=== PATIENT | male | born 1950 | race Caucasian/White ===

== ENCOUNTER 2023-12-29 10:05 | Outpatient (OUT) | payer MEDICARE, SELFPAY ==
--- NOTE | 2023-12-29 | XR_ITS ---
The [address] [address] Patient Name: MITCHELL COPE MRN: [id number] date: 1950 Sex: M Assigned Patient Location: Current Patient Location: Accession/Order Number: [id number] Exam Date: 12/29/2023 10:20 Report Date: 12/29/2023 13:04 At the request of: SHANIQUE EVERETT Procedure: XR lumbar spine min 4V EXAMINATION: XR lumbar spine min 4V HISTORY: LUMBAR PAIN COMPARISON: No relevant comparison available. FINDINGS: BONES: Neutral projection demonstrates normal alignment with no acute fracture or spondylolisthesis. Posterior decompression and transpedicular fusion of the thoracolumbar spine extending into the sacroiliac joints. There is likely fracture of one of the spinal fixation rods visualized on lateral projection 2. Wedge compression fracture and kyphoplasty of T12. Anterior fusion L5-S1. Moderate to severe degenerative spondylosis DISC SPACES: Interbody spacer L4-L5. Anterior fusion L5-S1 PARASPINOUS: Negative. No paraspinous abnormality is seen. OTHER: No transient spondylolisthesis with flexion or extension. Vascular calcifications XR/XR lumbar spine min 4V IMPRESSION: Fracture of inferior spinal fixation shayna No dynamic instability Electronically authenticated by: DAMEON FRANCOIS Date: 12/29/2023 13:04
== END 2023-12-29 10:06 | disposition home or self-care (01) ==
PROVIDERS: PCP Orthopaedic Surgery Orthopaedic Surgery of the Spine; Visit Provider Orthopaedic Surgery Orthopaedic Surgery of the Spine
DX: M54.50 Low back pain, unspecified (principal); T84.216A Breakdown (mechanical) of internal fixation device of vertebrae, initial encounter
CPT/HCPCS: 72110

== ENCOUNTER 2024-01-12 12:08 | Day surgery (SDC) | payer MEDICARE, SELFPAY ==
[2024-01-12] VITALS (7 sets, daily range): BP systolic 103–158; BP diastolic 52–103; PULSE 70–81; RESP 20; TEMP 36.7; O2SAT 96–99
--- NOTE | 2024-01-12 12:20 | FL_ITS ---
The [address] [address] Patient Name: MITCHELL COPE MRN: [id number] date: 1950 Sex: M Assigned Patient Location: MD Current Patient Location: MD Accession/Order Number: [id number] Exam Date: 01/12/2024 13:00 Report Date: 01/12/2024 13:55 At the request of: SHANIQUE EVERETT Procedure: FL Myelogram inj procedure EXAMINATION: FL Myelogram inj procedure, FL Myelogram needle placement HISTORY: lumbar back pain M54.50 COMPARISON: XR lumbar spine 12/29/2023 FLUOROSCOPY TIME: Fluoro time measures 1.1 minutes and 2 images were obtained. TECHNIQUE: After obtaining the patient's informed consent, a lumbar myelogram was performed in the usual sterile manner via lumbar puncture. Standard level fluoroscopic mode of operation utilized. 16 mL radiopaque contrast instilled into the central canal. FINDINGS: Contrast pooled within the lower lumbar central canal. No appreciable stricture. Bilateral posterior spinal fusion rods and pedicle screws. FL/FL Myelogram inj procedure IMPRESSION: 1. Technically successful lumbar puncture with injection of radiopaque contrast. No postprocedural, calcifications. 2. Please see subsequent CT lumbar spine report. Electronically authenticated by: ZENIA HEBERT Date: 01/12/2024 13:55
--- NOTE | 2024-01-12 12:21 | FL_ITS ---
The [address] [address] Patient Name: MITCHELL COPE MRN: [id number] date: 1950 Sex: M Assigned Patient Location: [place] Current Patient Location: [place] Accession/Order Number: [id number] Exam Date: 01/12/2024 13:00 Report Date: 01/12/2024 13:55 At the request of: SHANIQUE EVERETT Procedure: FL Myelogram needle placement EXAMINATION: FL Myelogram inj procedure, FL Myelogram needle placement HISTORY: lumbar back pain M54.50 COMPARISON: XR lumbar spine 12/29/2023 FLUOROSCOPY TIME: Fluoro time measures 1.1 minutes and 2 images were obtained. TECHNIQUE: After obtaining the patient's informed consent, a lumbar myelogram was performed in the usual sterile manner via lumbar puncture. Standard level fluoroscopic mode of operation utilized. 16 mL radiopaque contrast instilled into the central canal. FINDINGS: Contrast pooled within the lower lumbar central canal. No appreciable stricture. Bilateral posterior spinal fusion rods and pedicle screws. FL/FL Myelogram needle placement IMPRESSION: 1. Technically successful lumbar puncture with injection of radiopaque contrast. No postprocedural, calcifications. 2. Please see subsequent CT lumbar spine report. Electronically authenticated by: ZENIA HEBERT Date: 01/12/2024 13:55
--- NOTE | 2024-01-12 12:21 | CT_ITS ---
[address] [address] Patient Name: MITCHELL COPE MRN: [id number] date: 1950 Sex: M Assigned Patient Location: [place] Current Patient Location: Accession/Order Number: [id number] Exam Date: 01/12/2024 13:49 Report Date: 01/13/2024 08:44 At the request of: SHANIQUE EVERETT Procedure: CT lumbar spine w con EXAMINATION: CT lumbar spine w con HISTORY: lumbar pain COMPARISON: No relevant comparison available. TECHNIQUE: Axial, Coronal, and Sagittal images were created without IV contrast. Dose reduction techniques were achieved by using automated exposure control and/or adjustment of mA and/or kV according to patient size and/or use of iterative reconstruction technique. FINDINGS: VERTEBRAL BODIES: Prior compression fracture vertebroplasty of T12 with mild grade 1 retrolisthesis of T12 on L1. Mechanical fusion of lower thoracic and lumbar spine via bilateral pedicle screws and rods, with some hardware revision since 07/20/2020. No fracture, additional spondylolisthesis, or bone lesion. Posterior decompression of L1-L5. FACET JOINTS: Osseous fusion at all levels bilaterally. Multilevel mild-moderate bone encroachment on the neural foramen. DISCS: Intervertebral disc spacers at L4-L5, L5-S1. Mild narrowing at remaining levels and multilevel mild posterior disc bulging. Marked disc space narrowing T12-L1 with moderate central canal and bilateral moderate-marked foramen narrowing. CENTRAL CANAL: No spinal stenosis or evidence of hemorrhage. PARASPINAL AREA: Single electrode within central canal entering at L4-L5 and extending into the thoracic central canal above level of imaging. Fluid collection containing radiopaque contrast within soft tissues posterior to the central canal extending from superior endplate of L3 to inferior endplate of L5, 8.3 x 3[address]/CT lumbar spine w con IMPRESSION: 1. Lumbar myelogram performed prior to today's CT study. During the procedure a fluid collection was accessed posterior to L4-L5 with return of clear fluid within the needle hub and suspected represent CSF. Upon administration of contrast the radiopaque contrast to be seen flowing away from the needle tip appropriately. However, the subsequent CT study shows that there was a fluid collection/seroma posterior to the lumbar spine which was accessed rather than the thecal sac within the central canal. This limits evaluation of central canal stenosis and bulging discs. 2. Stable remote compression fracture of T12 with mild grade 1 retrolisthesis, moderate central canal narrowing, and moderate-marked foramen narrowing. 3. Mechanical fusion of lower thoracic and lumbar spine with some revision since prior study. Suspect fracture of the right and left spinal shayna just cephalad to the S2 to pedicle screws. Electronically authenticated by: ZENIA HEBERT Date: 01/13/2024 08:44
[2024-01-12] MEDS: LIDOCAINE HCL 10 ML, SODIUM BICARBONATE 1 MEQ INJ (13:15)
--- NOTE | 2024-01-12 14:28 | SUR.PREOP ---
01/02/24 Pt instructed on procedure, date, time, and prep. Pt made aware to be NPO after 0700 on 01/12/24 and have route cdl driver available.
--- NOTE | 2024-01-12 15:22 | PC.NURSE ---
1333 Pt transferred to cart with assist and rolled on right side. Pt taken to holding area. Bed low position with call light in reach. 1340 Pt rolled to left side per Dr carbajal request. Food ordered per pt request. [address] on stretcher. [address] and pt transferred back to cart and taken to holding area. SR up x 2 Bed low Call light in reach. 1415 Pt assisted with sitting up to side of bed to eat. Dressing dry and intact. 1435 Pt still sitting on side of bed to drink coffee. 1450 Pt layed back down supine on cart.
--- NOTE | 2024-01-12 15:31 | PC.NURSE ---
1505 Pt denies any change in his low back pain since prior to procedure. Still 08/08.
== END 2024-01-12 15:15 | disposition home or self-care (01) ==
LOC: FL 12:10
PROVIDERS: Radiology Diagnostic Radiology; PCP Orthopaedic Surgery Orthopaedic Surgery of the Spine; Visit Provider Orthopaedic Surgery Orthopaedic Surgery of the Spine
DX: M54.50 Low back pain, unspecified (principal)
CPT/HCPCS: 62284; 72132; 77003